=== PATIENT | male | born 1965 | race Caucasian/White ===

== ENCOUNTER 2017-07-13 04:03 | Emergency (ER) | payer BC ==
[~2017-07-13] VITALS: Ht 177.8 cm; Wt 86.2 kg
[2017-07-13 04:05] VITALS: BP 120/70
--- NOTE | 2017-07-13 04:26 | PHYS DOC ---
Past Medical History Past Medical History: No Pertinent History Past Surgical History: Appendectomy Alcohol Use: Occasionally Drug Use: None Adult General Chief Complaint Chief Complaint: UPPER EXTREMITY INJURY HPI HPI 51-year-old male presenting to the emergency department today after injuring his right hand or with machinery. He has pain in his right hand that is sharp moderate intermittent and without alleviating factors. He denies any pain in his wrist or elbow. He denies any other injuries. ROS negative for chest pain shortness of breath shoulder pain or elbow pain. All other review of systems is negative unless otherwise noted in history of present illness. ED course: 51-year-old gentleman presenting to the emergency room [place] after injuring his right hand while working. Patient mild abrasion on the dorsum of the hand without laceration. X-ray obtained which was unremarkable for acute fracture. Nontender scaphoid bone. Nontender snuffbox. Nontender volar aspect of scaphoid. Patient denied pain medication while he was here. He was subsequent discharged home to follow-up with his doctor next 2-3 days. The patient was then discharged home in stable condition to follow up with their primary care physician over the next 2-3 days. They were to return if their symptoms worsened or if they were concerned for any reason. [id number] discharge instructions and return precautions were given. Patient's questions were answered to their satisfaction. Patient is comfortable plan. Review of Systems Review of Systems SEE ABOVE. Current Medications Current Medications Current Medications Medications (Trade) Dose Ordered Sig/Michelle Start Time Stop Time Status Last Admin Dose Admin Diphtheria/ Tetanus/Acell Pertussis (Boostrix) 0.5 ml ONCE ONCE 07/13/17 05:00 07/13/17 05:01 Allergies Allergies Allergies Coded Allergies Type Severity Reaction Last Updated Verified No Known Drug Allergies 12/04/15 No Physical Exam Physical Exam SEE ABOVE Constitutional: Well developed, well nourished, no acute distress, non-toxic appearance. [] HENT: Normocephalic, atraumatic, bilateral external ears normal, oropharynx moist, no oral exudates, nose normal. [] Eyes: PERRLA, EOMI, conjunctiva normal, no discharge. [] Neck: Normal range of motion, no tenderness, supple, no stridor. [] Cardiovascular:Heart rate regular rhythm, no murmur [] Lungs & Thorax: Bilateral breath sounds clear to auscultation [] Abdomen: Bowel sounds normal, soft, no tenderness, no masses, no pulsatile masses. [] Skin: Warm, dry, no erythema, no rash. [] Back: No tenderness, no CVA tenderness. [] Extremities: No tenderness, no cyanosis, no clubbing, ROM intact, no edema. [] 2 second cap refill with abrasion to the dorsum of the hand. Mild tenderness along the fourth the carpal. No tenderness of the wrist or elbow proximally. Normal motor and vascular function. Normal sensation. Neurologic: Alert and oriented X 3, normal motor function, normal sensory function, no focal deficits noted. [] Psychologic: Affect normal, judgement normal, mood normal. [] Current Patient Data Vital Signs Vital Signs Date Time Temp Pulse Resp B/P (MAP) Pulse Ox O2 Delivery O2 Flow Rate FiO2 07/13/17 04:05 98.4 94 20 120/70 (87) 100 Room Air 98.4 EKG EKG [] Radiology/Procedures Radiology/Procedures X-ray of the right hand shows no obvious fracture or dislocation.[] Course & Med Decision Making Course & Med Decision Making Pertinent Labs and Imaging studies reviewed. (See chart for details) [] Dragon Disclaimer Dragon Disclaimer This electronic medical record was generated, in whole or in part, using a voice recognition dictation system. Departure Departure Impression: Primary Impression: Hand pain, right Additional Impression: Hand abrasion Disposition: 01 HOME, SELF-CARE Condition: STABLE Referrals: NO PCP (PCP) KARLIE CALHOUN MD Patient Instructions: Hand Injuries Additional Instructions: Thank you for allowing us to participate in your care today. Followup with your primary care physician in 3 days if your symptoms do not improve. Call your Primary Doctor tomorrow and inform them of your visit today. If you do not have a primary care provider you can ask for a list of our primary care providers. Return to the emergency department you have any new or concerning findings. This should be evaluated by the primary care physician and any necessary consulting services for continued management within a few days after discharge. Return to emergency room if you have any new or concerning symptoms including but not limited to fever, chills, nausea, vomiting, intractable pain, any new rashes, chest pain, shortness of air, uncontrolled bleeding, difficulty breathing, and/or vision loss. Problem Qualifiers CODEY BENSON MD Jul 13, 2017 04:26
[2017-07-13] MEDS ORDERED: DIPHTH,PERTUSS(ACELL),TET TOX 0.5 ML DISP.SYRIN. VAX IM ONE (05:00)
--- NOTE | 2017-07-13 07:31 | RAD ---
Indication pain. Injury. AP oblique and lateral views of the right hand were obtained. No bony abnormality is seen
== END 2017-07-13 04:45 | disposition home or self-care (01) ==
LOC: ER 04:03
DX: S60.511A Abrasion of right hand, initial encounter (principal); X58.XXXA Exposure to other specified factors, initial encounter; Y93.89 Activity, other specified; Y92.89 Other specified places as the place of occurrence of the external cause; Y99.8 Other external cause status
CPT/HCPCS: 73130; 90471; 90715; 99284-25

== ENCOUNTER 2018-01-28 19:45 | Emergency (ER) | payer BC ==
[2018-01-28] MEDS ORDERED: IBUPROFEN 600 MG TABLET. PO (21:15)
== END 2018-01-28 21:09 | disposition home or self-care (01) ==
LOC: ER 19:45
DX: M62.531 Muscle wasting and atrophy, not elsewhere classified, right forearm (principal); F17.200 Nicotine dependence, unspecified, uncomplicated; Z90.49 Acquired absence of other specified parts of digestive tract
CPT/HCPCS: 93971; 99284-25